=== PATIENT | female | born 1960 | race Caucasian/White ===

== ENCOUNTER → 2017-12-14 14:42 | Outpatient (CLI) | payer OTHER, SELFPAY ==
[2017-12-14 15:50] LABS: Absolute Lymphocyte Count 1.59 X10^3/ul (0.83-4.51); Absolute Neutrophil Count 3.3 X10^3/uL (2.0-7.7); Basophil# 0.01 X10^3/uL; Basophil% 0.2 % (0-1); Eosinophils% 1.8 % (0-5); Hematocrit 42.2 % (37-47); Hemoglobin 13.1 g/dl (12.0-15.0); Lymphocyte # 1.59 X10^3/ul (4.0); Lymphocyte % 28.6 % (19-41); Mean Corpuscular Hgb 30.6 pg (27.0-32.0); Mean Corpuscular Volume 98.6 fL (81-99); Mean Platelet Vol. 10.7 fl (6.2-12.0); Monocyte# 0.53 X10^3/uL; Monocyte% 9.5 % (0-10); Neutrophil # 3.33 X10^3/uL (2.7-7.7); Neutrophil % 59.9 % (47-70); Platelet Count 291 K/mm3 (150-450); RBC Distribution Width CV 13.7 % (11.6-14.6); RBC Distribution Width SD 48.8 fl (35.1-43.9); Red Blood Count 4.28 M/mm3 (4.2-5.4); White Blood Count 5.6 K/mm3 (4.4-11.0)
[2017-12-14 16:03] LABS: POSITIVE COUNT NO; POSITIVE DIFFERENTIAL NO; POSITIVE MORPHOLOGY NO
[2017-12-14 16:15] LABS: Anion Gap 9 (5-15); BUN 18 mg/dL (7-18); Calcium,Total 8.8 mg/dL (8.5-10.1); Chloride 105 mmol/L (98-107); Cholesterol 207 mg/dL (200); Creatinine, Serum 0.78 mg/dL (0.55-1.02); EST Glomerular Filtration Rate 80 mL/min (>60); Est Glom Filt Rate - Afr Amer 97 mL/min (>60); Glucose 86 mg/dL (74-106); High Density Lipoprotein 49 mg/dL; Potassium 4.2 mmol/L (3.5-5.1); Sodium Level 141 mmol/L (136-145); Thyroid Stim Hormone (TSH) 1.87 uIU/mL (0.358-3.74); Triglycerides 121 mg/dL; Very Low Density Lipoprotein 24 mg/dL (5-40)
== END ==
PROVIDERS: Family Provider Internal Medicine; PCP Internal Medicine; Visit Provider Family Medicine
DX: Z00.00 Encounter for general adult medical examination without abnormal findings (principal)
CPT/HCPCS: 36415; 80048; 80061; 84443; 85025

== ENCOUNTER → 2019-05-14 | Outpatient (CLI) | payer OTHER, SELFPAY ==
[2019-05-14 13:18] LABS: Anion Gap 5 (5-15); BUN 14 mg/dL (7-18); BUN/Creat Ratio 18.3 RATIO (10-20); Calcium,Total 9.2 mg/dL (8.5-10.1); Chloride 107 mmol/L (98-107); Cholesterol 224 mg/dL (200); Creatinine, Serum 0.76 mg/dL (0.55-1.02); EST Glomerular Filtration Rate 82 mL/min (>60); Est Glom Filt Rate - Afr Amer 99 mL/min (>60); Glucose 99 mg/dL (74-106); High Density Lipoprotein 50 mg/dL; Potassium 4.5 mmol/L (3.5-5.1); Sodium Level 139 mmol/L (136-145); Triglycerides 90 mg/dL; Very Low Density Lipoprotein 18 mg/dL (5-40)
== END | disposition home or self-care (01) ==
LOC: MFPLAB 10:12
PROVIDERS: Family Provider Family Medicine; PCP Family Medicine; Referring Provider Family Medicine; Visit Provider Family Medicine
DX: Z00.00 Encounter for general adult medical examination without abnormal findings (principal); E66.01 Morbid (severe) obesity due to excess calories
CPT/HCPCS: 36415; 80048; 80061; 84443

== ENCOUNTER → 2019-05-23 | Outpatient (CLI) | payer OTHER, SELFPAY ==
[2019-05-30 12:38] LABS: HPV Reflexed? NOT INDICATED
== END | disposition home or self-care (01) ==
LOC: LABSPEC 13:00
PROVIDERS: Family Provider Family Medicine; PCP Family Medicine; Referring Provider Family Medicine; Visit Provider Family Medicine
DX: Z01.419 Encounter for gynecological examination (general) (routine) without abnormal findings (principal)
CPT/HCPCS: 87491; 87591; 88175; G0145

== ENCOUNTER → 2020-06-10 | Outpatient (CLI) | payer MEDICAID, SELFPAY ==
--- NOTE | 2020-06-10 10:45 | BI_ITS ---
MAMMOGRAPHY - BILATERAL SCREENING REASON FOR EXAM: Female, 60 years old. Routine annual screening examination. PERTINENT HISTORY: Non-contributory. TECHNIQUE: Digital bilateral breast mesha (3D mammographic acquisition) in the CC and MLO projections. 2-D mediolateral oblique (MLO) and craniocaudad (CC) views of both breasts were obtained. CAD: Full Field Digital Mammography with Computer Added Detection was performed. COMPARISON: Comparison is made with prior examination dated 03/30/2011. FINDINGS: Breast Composition: The breasts are heterogeneously dense, which may obscure small masses. There are no dominant masses or suspicious calcifications. Stable benign-appearing bilateral axillary lymph nodes. No other significant abnormalities are identified. There has been no significant change since the prior study. BI/SCREEN MAMM (CAD) W/MESHA BILAT IMPRESSION: Stable bilateral screening mammogram. Yearly follow-up mammogram recommended. (A) ASSESSMENT CATEGORY: BIRADS Category 2: Benign. A letter regarding these results will be sent to the patient by the facility within 30 days. Approximately 10% of breast cancers are not detected by mammography. A normal mammogram should not delay biopsy of a clinically suspicious abnormality. [id number] Electronically Signed: Flaquito Meneses, at 9:31 EDT , Service support ,
== END | disposition home or self-care (01) ==
LOC: OPBI 10:39
PROVIDERS: PCP Nurse Practitioner Family; Referring Provider Nurse Practitioner Family; Visit Provider Nurse Practitioner Family
DX: Z12.31 Encounter for screening mammogram for malignant neoplasm of breast (principal)
CPT/HCPCS: 77063; 77067

== ENCOUNTER → 2021-03-14 07:45 | Outpatient (CLI) | payer OTHER, SELFPAY ==
[2020-12-30 14:11] VITALS: BMI 39.4
--- NOTE | 2021-03-14 07:46 | VDLE_ITS ---
Reason For Study: pain RIGHT LEFT CFV is compressible, spontaneous, phasic, CFV is compressible, spontaneous, phasic, competent and demonstrates normal competent, and demonstrates normal augmentation. augmentation. FV is compressible, spontaneous, phasic, FV is compressible, spontaneous, phasic, competent and demonstrates normal competent and demonstrates normal augmentation. augmentation. POP V is compressible, spontaneous, phasic, POP V is compressible, spontaneous, phasic, competent and demonstrates normal competent and demonstrates normal augmentation. augmentation. T/P Trunk is compressible. T/P Trunk is compressible. PTV is compressible. PTV is compressible. RT PerV is compressible. LT PerV is compressible. GSV S/P EVLA (unknown date). GSV S/P EVLA (unknown date). Procedure This is a venous duplex using B-mode, color flow and spectral Doppler. Exam performed in department. The study was technically difficult. Due to body habitus. A preliminary report was called and/or faxed to Dr. Hoskins @ 8:30 am. VL/Venous Duplex US - Robbie Extrem Interpretation Summary Bilateral no DVT. Bilateral previous successful ablation. Ordering Physician: Eugene Hoskins Referring Physician: Melinda [facility] Performed By: Glenda Chiu, RDCS, RVT
== END ==
PROVIDERS: Referring Provider Surgery Vascular Surgery; Visit Provider Surgery Vascular Surgery
DX: M79.606 Pain in leg, unspecified (principal); M79.89 Other specified soft tissue disorders
CPT/HCPCS: 93970

== ENCOUNTER 2022-11-01 11:17 | Emergency (ER) | payer OTHER, SELFPAY ==
[2022-11-01 11:18] VITALS: BP 149/74; PULSE 88; RESP 18; TEMP 36.1; O2SAT 100; BMI 39.8
--- NOTE | 2022-11-01 12:07 | RAD_ITS ---
STUDY: X-RAY - LEFT KNEE REASON FOR EXAM: Female, 62 years old. Knee pain following a fall. TECHNIQUE: 4 view(s) of the knee. COMPARISON: None. FINDINGS: Normal visualized distal femur. Normal visualized proximal tibia and fibula. Normal proximal tibiofibular articulation. There is severe degenerative arthrosis of the medial femorotibial compartment with severe joint space narrowing. Normal lateral femorotibial compartment. There is severe degenerative arthrosis of the patellofemoral articulation. The soft tissue structures are unremarkable. RAD/Knee 4 or More Views IMPRESSION: Degenerative arthrosis. Electronically Signed: Flaquito Meneses MD at 12:43 EST ,
--- NOTE | 2022-11-01 12:08 | ED.VIS.LOWEX ---
HPI History of Present Illness Chief Complaint: Lower Extremity Injury Informant: patient Narrative Narrative: Presents with a fall on ice yesterday evening. No head injuries. Injury left knee and left ankle. Known meniscus injury to left knee followed by Dr. Pabon. Gets knee injections. No surgical plans at this time. Tylenol taken yesterday. No history of gastric ulcers or kidney injury. No paresthesias. No history of fractures. PFSH PFSH Medical History Primary osteoarthritis of right knee Home Medications cholecalciferol (vitamin D3) 10 mcg (400 unit) capsule 10 mcg PO DAILY 11/25/21 [History Last Taken Unknown] multivitamin 1 tab PO DAILY 11/25/21 [History Last Taken Unknown] turmeric 400 mg capsule mg PO 11/25/21 [History Last Taken Unknown] Allergy/AdvReac Type Severity Reaction Status Date / Time No Known Allergies Allergy Verified 11/01/22 11:19 Family History Father Heart disease Mother Arthritis, rheumatoid Surgical History H/O arthroscopic knee surgery Social History Smoking Status: Never smoker alcohol intake: current alcohol intake frequency: holidays/special occasions only ROS ROS ED Constitutional Constitutional ED: Denies chills, fever(s) or sweats Eyes Eyes: Denies change in vision ENT ENT ED: Denies dysphagia or sore throat Cardiovascular Cardiovascular: Denies chest pain, leg edema, palpitations or racing heartbeat Respiratory/Chest Respiratory/Chest: Denies cough, dyspnea or dyspnea on exertion Gastrointestinal Gastrointestinal: Denies abdominal pain, diarrhea, nausea or vomiting Genitourinary Genitourinary ED: Denies dysuria, hematuria or urinary frequency Musculoskeletal Musculoskeletal: Reports extremity pain; Denies back pain or neck pain Integumentary Denies rash or wounds Neurologic Neurologic: Denies headache(s), paresthesias or weakness EXAM Physical Exam Const Vital Signs: 11/01/22 11:18 11/01/22 13:34 Temperature 96.9 F L Temperature Source Temporal Pulse Rate 88 74 Respiratory Rate 18 Blood Pressure 149/74 H 115/42 L Blood Pressure Mean 99 Pulse Ox 100 99 Oxygen Delivery Method Room Air Positive well nourished and well developed General Appearance ED: well developed and NAD HEENT Reports moist mucous membranes normocephalic and atraumatic Eyes PERRL, EOMs intact bilaterally and conjunctivae normal General Eye ED: Yes normal appearance of both eyes Neck no lymphadenopathy and supple General: Negative for tenderness Chest Wall Chest: Negative for tenderness Resp normal respiratory effort and normal air movement Effort and Inspection: symmetric chest movement; Negative for respiratory distress Cardio regular rate, regular rhythm and no murmurs Peripheral Pulses: pulses 2+ throughout GI normal to inspection, nondistended, normoactive bowel sounds and non-tender Palpation: Negative for guarding or rebound tenderness present Back/Spine no CVA tenderness and no thoracic nor lumbar tenderness Extremity Extremity Narrative: Left lower extremity: Negative logroll. Knee extensor mechanism intact. No deformity. No proximal head tenderness. Negative varus and valgus. Pain with Nicole's. No medial malleoli or tenderness x-rays lateral malleolus swelling with very minimal tenderness. No midfoot or proximal fifth base tenderness. Skin intact. Neuro vas intact. General Extremety ED: Negative for edema or tenderness General Extremity: Negative for edema Neuro oriented x3 and no sensory deficits noted Sensorium / Orientation: awake and alert Skin no rashes or lesions noted and no wounds MDM MDM MDM Narrative Medical decision making narrative: Patient mechanical fall left knee and ankle injury. 4 view left knee and 3 view left ankle reviewed by myself and read by radiology notes arthrosis of the left knee and lateral soft tissue swelling the ankle. There is no fracture or dislocation. She is treated with ibuprofen. She did not want any additional prescriptions. Aircast to the left ankle she has a four-point walking cane. She will follow-up with Dr. Pabon. All questions were answered. Radiography Diagnostic Testing: Clinical Impression(s) from Imaging Studies Knee X-Ray 11/01/22 12:07 IMPRESSION: Degenerative arthrosis. Electronically Signed: Flaquito Meneses MD at 12:43 EST , Ankle X-Ray 11/01/22 12:24 IMPRESSION: Lateral soft tissue swelling. Electronically Signed: Flaquito Meneses MD at 12:42 EST , Discharge Plan Triage Chief Complaint: Lower Extremity Injury ED Provider: Felipe Sin Dx/Rx/DC Orders Clinical Impression: Left ankle sprain, Left knee sprain Instructions: ED Knee Sprain, ED Ankle Sprain (Adult) Prescriptions: No Action cholecalciferol (vitamin D3) 10 mcg (400 unit) capsule 10 mcg PO DAILY turmeric 400 mg capsule PO multivitamin Tablet 1 tab PO DAILY [facility]errals: Hemant Pabon DO [Med Staff - Active Staff] - 1 Week if not improving [facility],Melinda Gonzáles [Primary Care Provider] - Activity Restrictions/Additional Instructions: Left knee x-ray arthritic changes. Left ankle with no fractures. Disposition Disposition: Home, Self Care Discharge Date/Time: 11/01/22 13:40
--- NOTE | 2022-11-01 12:24 | RAD_ITS ---
STUDY: X-RAY - LEFT ANKLE REASON FOR EXAM: Female, 62 years old. Left ankle pain following a fall. TECHNIQUE: 3 view(s) of the ankle. COMPARISON: None. FINDINGS: Normal visualized distal tibia and fibula. Normal medial and lateral malleoli. Normal tibiotalar articulation and ankle mortise. Calcaneal spurs. The visualized subtalar, talonavicular, calcaneocuboid and tarsal articulations are normal. Lateral soft tissue swelling. RAD/Ankle min 3 Views IMPRESSION: Lateral soft tissue swelling. Electronically Signed: Flaquito Meenses MD at 12:42 EST ,
[2022-11-01] MEDS: Ibuprofen 600 MG Tablet PO (12:35)
[2022-11-01 13:34] VITALS: BP 115/42; PULSE 74; O2SAT 99
--- NOTE | 2022-11-01 13:39 | ED.RN ---
patient requested wheel chair and security to bring van up to the door. [employer] on their way to get the keys and patient taken to door for van. Pt liason is aware of situation.
== END 2022-11-01 13:40 | disposition home or self-care (01) ==
PROVIDERS: Emergency Provider Emergency Medicine; Visit Provider Emergency Medicine
DX: S93.402A Sprain of unspecified ligament of left ankle, initial encounter (principal); M17.12 Unilateral primary osteoarthritis, left knee; S83.92XA Sprain of unspecified site of left knee, initial encounter; W00.0XXA Fall on same level due to ice and snow, initial encounter
CPT/HCPCS: 73564; 73610; 99283

== ENCOUNTER → 2022-11-08 | Outpatient (CLI) | payer OTHER, SELFPAY ==
--- NOTE | 2022-11-08 09:45 | BI_ITS ---
MAMMOGRAPHY - BILATERAL SCREENING REASON FOR EXAM: Female, 62 years old. Routine annual screening examination. PERTINENT HISTORY: Non-contributory. TECHNIQUE: Digital bilateral breast mesha (3D mammographic acquisition) in the CC and MLO projections. 2-D mediolateral oblique (MLO) and craniocaudad (CC) views of both breasts were obtained. CAD: Full Field Digital Mammography with Computer Added Detection was performed. COMPARISON: Mammogram from 06/10/2020. FINDINGS: Breast Composition: Portions of the bilateral breasts are heterogeneously dense which may obscure small masses. There are no dominant masses or suspicious calcifications. Stable benign-appearing bilateral axillary lymph nodes. No other significant abnormalities are identified. There has been no significant change since the prior study. BI/SCRN MAMM (CAD)W/MESHA BILAT IMPRESSION: Stable bilateral screening mammogram. Yearly follow-up mammogram recommended. (A) ASSESSMENT CATEGORY: BIRADS Category 2: Benign. A letter regarding these results will be sent to the patient by the facility within 30 days. Approximately 10% of breast cancers are not detected by mammography. A normal mammogram should not delay biopsy of a clinically suspicious abnormality. Electronically Signed: Rodger Knowles, at 8:56 EST ,
--- NOTE | 2022-11-08 09:52 | BD_ITS ---
STUDY: DUAL ENERGY X-RAY ABSORPTIOMETRY / DXA REASON FOR EXAM: Female, 62 years old. [id number] TECHNIQUE: Bone Mineral Density (BMD) measurements of lumbar spine and bilateral hips were obtained. COMPARISON: None. FINDINGS: Lumbar Spine (L1-L4): g/cm2 (1.346) / T-score (2.7) / Z-score (4.5) Findings are suggestive of normal bone density with a low fracture risk. Left Femur Total: g/cm2 (1.103) / T-score (1.3) / Z-score (2.5) Left Femoral Neck: g/cm2 (0.858) / T-score (0.1) / Z-score (1.6) Right Femur Total: g/cm2 (1.134) / T-score (1.6) / Z-score (2.8) Right Femoral Neck: g/cm2 (0.939) / T-score (0.8) / Z-score (2.3) BD/Dexa Bone Density Study IMPRESSION: The patient is considered normal as outlined below according to World Adan Organization (WHO) criteria with a low fracture risk. Reference Information: The T-score is the number of standard deviations above or below the standard which is normal for young adults at their peak bone mineral density. The World Health Organization (WHO) interprets the T-scores as follows: Above -1 Normal bone density Between -1 and -2.5 Osteopenia Equal to / or below -2.5 Osteoporosis As a practical clinical guideline, osteopenia may be graded as follows: Mild -1 through -1.5 Moderate -1.6 through -2.0 Severe -2.1 through -2.4 The Z-score is the number of standard deviations above or below age-matched controls. A Z-score of less than -1.5 would be considered abnormal. References: 1. NIH Osteoporosis and Related Bone Diseases www osteo.org 2. International Society for Clinical Densitometry www iscd.org 3. National Osteoporosis Foundation www nof.org Electronically Signed: Flaquito Meneses MD at 12:16 EST ,
== END | disposition home or self-care (01) ==
LOC: OPBD 09:43
PROVIDERS: Visit Provider Nurse Practitioner Women's Health
DX: Z12.31 Encounter for screening mammogram for malignant neoplasm of breast (principal); Z78.0 Asymptomatic menopausal state
CPT/HCPCS: 77063; 77067; 77080

== ENCOUNTER → 2023-07-05 | Outpatient (CLI) | payer MEDICARE, SELFPAY ==
[2023-07-05 10:25] LABS: Absolute Lymphocyte Count 1.81 X10^3/uL (0.83-4.51); Absolute Neutrophil Count 3.2 X10^3/uL (2.0-7.7); Basophil# 0.02 X10^3/uL; Basophil% 0.3 % (0-1); Eosinophil# 0.19 X10^3/uL; Eosinophils% 3.3 % (0-5); Hematocrit 43.6 % (37-47); Hemoglobin 13.7 g/dL (12.0-15.0); Lymphocyte # 1.81 X10^3/ul (0.83-4.51); Lymphocyte % 31.4 % (19-41); Mean Corp Hgb Conc 31.4 g/dL (32-36); Mean Corpuscular Hgb 30.8 pg (27.0-32.0); Mean Platelet Vol. 10.9 fl (6.2-12.0); Monocyte% 8.7 % (0-10); NRBC Flagged by Analyzer 0 % (0-5); Neutrophil # 3.24 X10^3/uL (2.7-7.7); Neutrophil % 56.1 % (47-70); Platelet Count 309 K/mm3 (150-450); RBC Distribution Width CV 13.9 % (11.6-14.6); Red Blood Count 4.45 M/mm3 (4.2-5.4); White Blood Count 5.8 K/mm3 (4.4-11.0)
[2023-07-05 11:03] LABS: AST(SGOT) 22 U/L (15-37); Alanine Aminotransfer ALT/SGPT 37 U/L (13-56); Albumin, Serum 3.4 g/dL (3.2-5.0); Alkaline Phosphatase 82 U/L (45-117); Anion Gap 5 (5-15); BUN 15 mg/dL (7-18); BUN/Creat Ratio 18.8 RATIO (10-20); Calcium,Total 8.8 mg/dL (8.5-10.1); Chloride 109 mmol/L (98-107); Cholesterol 218 mg/dL (200); EST Glomerular Filtration Rate 76 mL/min (>60); Est Glom Filt Rate - Afr Amer 93 mL/min (>60); Globulin 3.5 g/dL (2.2-4.2); Glucose 111 mg/dL (74-106); High Density Lipoprotein 49 mg/dL; Potassium 4.1 mmol/L (3.5-5.1); Protein, Total 6.9 g/dL (6.4-8.2); Sodium Level 140 mmol/L (136-145); Thyroid Stim Hormone (TSH) 4.14 uIU/mL (0.358-3.74); Triglycerides 147 mg/dL; Very Low Density Lipoprotein 29 mg/dL (5-40)
[2023-07-06 14:18] LABS: Hemoglobin A1c 5.3 % (3.8-5.6)
== END | disposition home or self-care (01) ==
LOC: MFPLAB 08:33
PROVIDERS: PCP Family Medicine; Visit Provider Family Medicine
DX: R73.09 Other abnormal glucose (principal); E66.01 Morbid (severe) obesity due to excess calories; Z13.1 Encounter for screening for diabetes mellitus
CPT/HCPCS: 36415; 80053; 80061; 83036; 84443; 85025

== ENCOUNTER 2024-03-14 08:01 | Outpatient (RCR) | payer MEDICARE, SELFPAY ==
[2024-03-14 08:32] VITALS: BP 166/79; PULSE 67; RESP 18; TEMP 35.7
--- NOTE | 2024-03-14 12:41 | HP.PCM_ITS ---
History of Present Illness Date of Service: 03/14/24 Chief Complaint: wound of right thumb History of Wound: Sydnie is a pleasant 63 yo woman that presents to the wound healing center today for evaluation and treatment of a nonhealing lesion of her right thumb. She reports that it has been present for over a year. She was seen at [facility] and the lesion was lanced and thick clear viscous fluid was expressed. The lesion returned with time and has become more swollen. She saw PCP 2 weeks ago and he treated it with cryotherapy. He referred her to the wound center due to lack of healing after cryotherapy. She states that it is sometimes painful when she puts pressure on it. She has not been using any dressings to the area. She denies fever, chills, erythema, or drainage. She has not had any similar lesions anywhere else. She is otherwise healthy and has no medical problems and takes no medications. [facility] Medical History Primary osteoarthritis of right knee Home Medications multivitamin 1 tab PO DAILY 11/25/21 [History Last Taken Unknown] miscellaneous medical supply 1 ea miscellaneous .1.0 year #1 ea 11/17/22 [Rx Last Taken Unknown] Allergy/AdvReac Type Severity Reaction Status Date / Time No Known Allergies Allergy Verified 03/10/24 13:07 Family History Father Heart disease Mother Arthritis, rheumatoid Surgical History H/O arthroscopic knee surgery Social History Smoking Status: Never smoker alcohol intake: current alcohol intake frequency: holidays/special occasions only ROS Constitutional Constitutional: Denies chills, fatigue or fever(s) Eyes Eyes: Denies blurry vision, change in vision or loss of vision ENT HEENT: Denies dysphagia, hearing loss or sore throat Cardiovascular Cardiovascular: Denies chest pain, edema or palpitations Respiratory/Chest Respiratory/Chest: Denies dry cough, dyspnea, dyspnea on exertion, productive cough or wheezing Gastrointestinal Gastrointestinal: Denies diarrhea, nausea or vomiting Genitourinary Genitourinary: Denies dysuria or polyuria Musculoskeletal Musculoskeletal: Denies arthralgias, joint stiffness or muscle weakness Integumentary Integumentary: Reports erythema and wounds Neurologic Neurologic: Denies dizziness, memory loss or weakness Psychiatric Psychiatric: Denies homicidal ideation or suicidal ideation Endocrine Endocrinology: Denies polydipsia, polyphagia or polyuria Hematologic/Lymphatic Hematologic/Lymphatic: Denies easy bleeding or easy bruising Allergic/Immunologic Allergic/Immunologic: Denies throat swelling, tongue swelling or urticaria Vital Signs Vital Signs Vital Signs: 03/14/24 08:32 Temperature 96.2 F L Temperature Source Temporal Pulse Rate 67 Respiratory Rate 18 Blood Pressure 166/79 H Blood Pressure Mean 108 Blood Pressure Source Monitor Blood Pressure Position Semi-Fowlers Blood Pressure Location Left Arm Physical Exam Const alert, oriented x3 and no apparent distress General Appearance: cooperative and comfortable HEENT normocephalic and head/scalp atraumatic Resp normal respiratory effort Effort and Inspection: able to speak in complete sentences Cardio regular rate and regular rhythm Skin Wounds: wounds noted Wound Narrative: as in clinical panel Psych mental status grossly normal, thought process normal, cooperative and affect normal Debridement Note Debridement Note Wound debrided: right distal thumb Laterality: Right Anesthesia Used: 4% Lidocaine Solution Amount of bleeding with debridement: Mild Bleeding Controlled with: Pressure and Compression and gauze Operative Diagnosis: 18 G needle used to puncture Post-Debridement Measurements and Additional Note: Post-Debridement Measurements/Treatment WC - Nurse 1 - General Ulcer Assessment Start: 03/14/24 08:32 Freq: Status: Active Protocol: [email or web address] Activity Type Activity Date Activity User E-sign Co-sign Detail Recorded Client Recorded Date Recorded By Document 03/14/24 08:32 [id number] 03/14/24 08:34 RB 03/14/24 08:32 - Today's Visit Information Type of service Initial Visit Arrival Mode Ambulatory Transfer Assistance None Patient Identification Verified (Name & No ) Vital Signs Temperature (97.8 F-99.1 F) 96.2 F L Temperature Source Temporal Pulse Rate (60-100) 67 Pulse Location Monitor Respiratory Rate (12-18) 18 Respiratory rate source Observation Blood Pressure (90/60-120/80) 166/79 H Blood Pressure Mean 108 Source Monitor Position Semi-Fowlers Blood Pressure Location Left Arm Pain Scale: 0-10 Numeric Is Patient Pain Free? Yes WC - Nurse 1 - General Ulcer Measurement Start: 03/14/24 08:32 Freq: Status: Active Protocol: Activity Type Activity Date Activity User E-sign Co-sign Detail Recorded Client Recorded Date Recorded By Document 03/14/24 08:32 RB [id number] 03/14/24 08:34 RB 03/14/24 08:32 Wound Center Nurse 1 1. R THUMB -Combined with other wound No -Current Size (cm) - Length 0.1 -Current Size (cm) - Width 0.1 -Current Size (cm) - Depth 0.1 -Total Square Cm 0.01 -Photo Taken Yes -Tunneling No -Undermining/Tunneling No -Circular Undermining No -Exudate Amt None Present -Wound Margin Distinct, Outline Attached -Granulation Amt Large (67-100%) -Granulation Quality [place] -Slough/Fibrin No -Structure Exposed N/A -Texture (Goldie-wound Skin Appearance) Assessed -Moisture (Goldie-wound Skin Appearance) Assessed -Color (Goldie-wound Skin Appearance) Assessed -Temperature (Goldie-wound Skin No Abnormality Appearance) (Pt Warm) -Tenderness on Palpation (Goldie-wound No Skin Appearance) -Ulcer Cleansing Wound Cleanser -Foul Odor after Cleansing No -Anesthetic Used 4% Lidocaine Solution WC - Nurse 2 - General Ulcer CM Notes Start: 03/14/24 08:32 Freq: Status: Active Protocol: Activity Type Activity Date Activity User E-sign Co-sign Detail Recorded Client Recorded Date Recorded By Document 03/14/24 08:33 GM Desktop 03/14/24 08:54 GM 03/14/24 08:33 Pain Scale: 0-10 Numeric Is Patient Pain Free? Yes Assessment/Plan Assessment/Plan (1) Osteoarthritis of knees, bilateral: CODE(S): M17.0 - Bilateral primary osteoarthritis of knee QUALIFIERS: Osteoarthritis type: primary Qualified Code(s): M17.0 - Bilateral primary osteoarthritis of knee (2) Obesity: CODE(S): E66.9 - Obesity, unspecified QUALIFIERS: Obesity type: unspecified obesity type Obesity classification: adult class 2 (BMI 35 - 39.9) Serious obesity comorbidity presence: without serious comorbidity Body mass index: unspecified BMI Qualified Code(s): E66.9 - Obesity, unspecified (3) Ganglion cyst of flexor tendon sheath of finger of right hand: CODE(S): M67.441 - Ganglion, right hand PLAN: Plan Incision and drainage performed today in clinic using 18 G needle. Small amount of viscous clear drainage expressed consistent with ganglion cyst or synovial cyst. Pressure and bandage applied. Patient tolerated procedure well. At home wound-care instructions: Keep area clean and dry for the next few days. If returns could consider orthopedic referral for possible surgical excision of cyst. Diet: Patient encouraged to increase protein intake while taking caution to avoid high carbohydrate and/or sugar intake. Labs/cultures/imaging: Follow-up: Will discharge from treatment today. Return sooner or report to the emergency room should symptoms worsen, or new symptoms arise. Note: [employer] speech recognition construction assistant software was used to create portions of this document. Sound-alike and misspelled words, as well as other construction assistant errors may be contained in the documentation.
== END 2024-04-11 23:59 | disposition home or self-care (01) ==
LOC: WC 08:01
PROVIDERS: PCP Family Medicine; Referring Provider Family Medicine; Visit Provider Family Medicine
DX: M17.0 Bilateral primary osteoarthritis of knee (principal); E66.9 Obesity, unspecified; M67.441 Ganglion, right hand; Z68.35 Body mass index [BMI] 35.0-35.9, adult
CPT/HCPCS: 99213; G0463

== ENCOUNTER → 2024-05-09 | Outpatient (CLI) | payer MEDICARE, SELFPAY ==
[2024-05-09 17:35] LABS: Absolute Lymphocyte Count 1.88 X10^3/uL (0.83-4.51); Absolute Neutrophil Count 3.9 X10^3/uL (2.0-7.7); Basophil# 0.03 X10^3/uL; Basophil% 0.4 % (0-1); Eosinophil# 0.24 X10^3/uL; Eosinophils% 3.6 % (0-5); Hematocrit 41.7 % (37-47); Hemoglobin 13.2 g/dL (12.0-15.0); Lymphocyte # 1.88 X10^3/ul (0.83-4.51); Lymphocyte % 27.9 % (19-41); Mean Corp Hgb Conc 31.7 g/dL (32-36); Mean Corpuscular Hgb 30.2 pg (27.0-32.0); Mean Corpuscular Volume 95.4 fL (81-99); Mean Platelet Vol. 10.5 fl (6.2-12.0); Monocyte# 0.65 X10^3/uL; Monocyte% 9.6 % (0-10); NRBC Flagged by Analyzer 0 % (0-5); Neutrophil # 3.93 X10^3/uL (2.7-7.7); Neutrophil % 58.4 % (47-70); Platelet Count 334 K/mm3 (150-450); RBC Distribution Width CV 14.5 % (11.6-14.6); RBC Distribution Width SD 51.5 fl (35.1-43.9); Red Blood Count 4.37 M/mm3 (4.2-5.4); White Blood Count 6.7 K/mm3 (4.4-11.0)
[2024-05-09 18:20] LABS: ALB/GLOB Ratio 1.2 RATIO (0.9-2.4); AST(SGOT) 28 U/L (15-37); Alanine Aminotransfer ALT/SGPT 43 U/L (13-56); Albumin, Serum 3.8 g/dL (3.2-5.0); Alkaline Phosphatase 89 U/L (45-117); Anion Gap 7 (5-15); BUN 16 mg/dL (7-18); BUN/Creat Ratio 20.9 RATIO (10-20); Calcium,Total 9.4 mg/dL (8.5-10.1); Chloride 108 mmol/L (98-107); Creatinine, Serum 0.76 mg/dL (0.55-1.02); EST Glomerular Filtration Rate 80 mL/min (>60); Est Glom Filt Rate - Afr Amer 97 mL/min (>60); Globulin 3.2 g/dL (2.2-4.2); Glucose 97 mg/dL (74-106); Potassium 4.3 mmol/L (3.5-5.1); Sodium Level 141 mmol/L (136-145); T4 Free Direct 1.04 ng/dL (0.76-1.46); Thyroid Stim Hormone (TSH) 3.72 uIU/mL (0.358-3.74)
[2024-05-09 18:31] LABS: Microalbumin,Random Urine 5.6 mg/L (NO RANGE EST.); Microalbumin:Creatinine Ratio 6.1 mg/g CRE (<30 mg/g CRE)
== END | disposition home or self-care (01) ==
LOC: MTLAB 16:15
PROVIDERS: PCP Family Medicine; Visit Provider Family Medicine
DX: I73.9 Peripheral vascular disease, unspecified (principal); R60.0 Localized edema; R79.89 Other specified abnormal findings of blood chemistry
CPT/HCPCS: 36415; 80053; 82043; 82570; 84439; 84443; 85025

== ENCOUNTER → 2024-12-25 | Outpatient (CLI) | payer MEDICARE, SELFPAY ==
[2024-12-25 16:04] LABS: Vitamin D,25 Hydroxy 29.2 ng/mL
== END | disposition home or self-care (01) ==
LOC: MFPLAB 11:37
PROVIDERS: PCP Family Medicine; Referring Provider Family Medicine; Visit Provider Family Medicine
DX: R79.89 Other specified abnormal findings of blood chemistry (principal); Z92.89 Personal history of other medical treatment
CPT/HCPCS: 36415; 82306; 84443

== ENCOUNTER → 2025-01-02 | Outpatient (CLI) | payer MEDICARE, SELFPAY ==
--- NOTE | 2025-01-02 11:02 | BI_ITS ---
PROCEDURE: SCRN MAMM (CAD)W/MESHA BILAT REASON FOR EXAM: F, Age 64 y/o, presents for annual screening mammogram. No family history of breast cancer. TECHNIQUE: Bilateral screening digital breast tomosynthesis with 2D and 3D images. Computer aided detection. COMPARISON: 10/31/2022 FINDINGS: There are scattered areas of fibroglandular density. No suspicious masses, areas of developing architectural distortion, or suspicious calcifications. BI/SCRN MAMM (CAD)W/MESHA BILAT IMPRESSION: There is no mammographic evidence of malignancy in either breast.. BI-RADS 1: NEGATIVE. RECOMMEND ANNUAL MAMMOGRAPHIC SCREENING. Follow-up code: Routine Follow-up The patient will be notified of the results by letter. Reading Location: [id number]
== END | disposition home or self-care (01) ==
LOC: OPBI 11:01
PROVIDERS: PCP Family Medicine; Referring Provider Family Medicine; Visit Provider Family Medicine
DX: Z12.31 Encounter for screening mammogram for malignant neoplasm of breast (principal)
CPT/HCPCS: 77063; 77067

== ENCOUNTER 2025-01-19 09:42 | Day surgery (SDC) | payer MEDICARE, SELFPAY ==
[2025-01-19] VITALS (8 sets, daily range): BP systolic 114–146; BP diastolic 66–82; PULSE 14–83; RESP 16–69; TEMP 36.3–36.9; O2SAT 97–100; BMI 42.4
--- NOTE | 2025-01-19 10:05 | PCM.PRE.AN2 ---
ASA Classification* ASA Classification ASA Classification: 3 Assessment & Plan Anesthesia* Anesthesia Assessment Anesthesia Assessment: Discussed sedation and/or anesthesia options, risks, benefits, and alternatives with patient/parents/legal guardian/POA. Questions invited. The patient/parents/legal guardian/POA seems to understand and agrees to proceed with anesthesia plan. Reviewed the physical assessment, medical history, allergy history and patient home medications list prior to surgery/procedure/anesthetic and documented any changes. Performed airway and anesthesia risk assessments. Anesthesia Type Anesthesia Type: MAC Anesthesia Focused Assessment* Temperature: 98.5 F Pulse Rate: 83 Blood Pressure: 146/82 Respiratory Rate: 16 Pulse Ox: 97 Airway Assessment Mouth opens: >3 cm Mallampati Score: II Focused Labs Anesthesia Preop lab: CBC WBC 6.7 K/mm3 (4.4-11.0) 05/09/24 16:19 05/09/24 RBC 4.37 M/mm3 (4.2-5.4) 05/09/24 16:19 05/09/24 Hgb 13.2 g/dL (12.0-15.0) 05/09/24 16:19 05/09/24 Hct 41.7 % (37-47) 05/09/24 16:19 05/09/24 Plt Count 334 K/mm3 (150-450) 05/09/24 16:19 05/09/24 CHEMISTRY Potassium 4.3 mmol/L (3.5-5.1) 05/09/24 16:19 05/09/24 Sodium 141 mmol/L (136-145) 05/09/24 16:19 05/09/24 BUN 16 mg/dL (7-18) 05/09/24 16:19 05/09/24 Creatinine 0.76 mg/dL (0.55-1.02) 05/09/24 16:19 05/09/24 Glucose 97 mg/dL (74-106) 05/09/24 16:19 05/09/24 TSH 2.530 uIU/mL (0.358-3.740) 12/25/24 11:37 12/25/24 COAG Pre-Assessment Diagnosis/Proposed Procedure Planned Operative Procedure(s): cscope Anesthesia History 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 When Was Last Pacemaker Check QUESTION #4 FULL TEXT: You/Your Family Experience fever (hyperthermia) with Anesthesia Last Oral Intake Last Oral intake: Last Oral Intake NPO since 06:30 01/19/25 09:56 Meds taken in AM with sips of water? 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 Female Yes 01/15/25 14:24 HX of Motion Sickness No 01/15/25 14:24 HX of N/V After Surgery No 01/15/25 14:24 Non-Smoker Yes 01/15/25 14:24 Duration of Surgery greater No 01/15/25 14:24 than 60 minutes Number of Risk Factors 2 01/15/25 14:24 PONV Score Moderate Risk 01/15/25 14:24 Height & Weight Height & Weight: Anesthesia: Height & Weight Height 5 ft 4 in 01/19/25 09:56 Weight: 112.037 kg 01/19/25 09:56 Body Mass Index (BMI) 42.4 01/19/25 09:56 Respiratory Assessment Respiratory Assessment - white sugar pan tank operator: Respiratory Tract Infection Hx - white sugar pan tank operator Hx Respiratory Tract Infection No 01/15/25 14:24 STOP Sleep Apnea STOP Sleep Apnea - white sugar pan tank operator: STOP Sleep Apnea - white sugar pan tank operator Hx Hypertension No 01/15/25 14:24 Hx Sleep Apnea No 01/15/25 14:24 CPAP BIPAP Do you snore loudly (louder No 01/15/25 14:24 than talking or can be heard Do you often feel tired/ No 01/15/25 14:24 fatigued/ sleepy during daytime? Has anyone observed you stop No 01/15/25 14:24 breathing during sleep? STOP Results Negative 01/15/25 14:24 QUESTION #5 FULL TEXT : Do you snore loudly (louder than talking or can be heard through closed doors)? 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 Specify any problems Hx of Preganancy in last 3 N/A 01/15/25 14:24 Months Nurse Filling Out Transfusion NBUCHER 01/15/25 14:24 & Questions: Date: 01/15/25 01/15/25 14:24 Time: 14:24 01/15/25 14:24 Patient unable to answer at this time (ie. 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: /Reproductive Hx- white sugar pan tank operator Hx Now No 01/15/25 14:24 Gestational Age (in weeks): EDC: Hx Hx Para Hx Section SAB No 01/15/25 14:24 PFSH Medical History Wears glasses Arthritis Non-smoker History of edema PVD (peripheral vascular disease) Hx of colonic polyps Primary osteoarthritis of right knee Home Medications ?Medication ?Instructions ?Recorded ?Last Taken ?Type semaglutide (weight loss) 0.25 0.25 mg subcut TU 01/01/25 01/06/25 History mg/0.5 mL subcutaneous pen injector Allergy/AdvReac Type Severity Reaction Status Date / Time No Known Allergies Allergy Verified 01/19/25 09:56 Family History Father Heart disease Mother Arthritis, rheumatoid Surgical History Hx of colonoscopy H/O arthroscopic knee surgery Social History household members: none current occupational status: retired pets and animals: Yes pets and animals: cat(s) Smoking Status: Never smoker alcohol intake: current alcohol intake frequency: holidays/special occasions only substance use type: does not use Review of Systems (Anesthesia) ROS Narrative System reviewed and no additional complaints, except as documented.
--- NOTE | 2025-01-19 11:00 | COLBX_PTH ---
PATIENT: CRISTINO DANG LOC: EN U#:[id number] AGE/SX: 64/F ROOM: RE01/19/[address]: Dr. Bhakti Najera MD : 1960 BED: DIS: 01/19/2025 SPEC #: [id number] RECD: 01/19/25 12:27 STATUS: ALINE REPita #: [id number] MICAH: 01/19/25 11:[address]: Bhakti Najera DEPT: SURGICAL PATHOLOGY RECD BY: Leticia Garcia ENTERED: 01/19/25 12:46 SP TYPE: COLON BX OTHR DR: Parish Campos MD Tissues: A - Ascending colon B - Descending colon C - Sigmoid colon biopsy Procedures: Surgery Specimen Level IV HEADER OPERATION: Colonoscopy with polypectomy PRE-OP DIAGNOSIS: Encounter for screening for malignant neoplasm of colon TISSUE SUBMITTED: A- Ascending colon polyp, B- Descending colon polyp biopsy, C- Sigmoid polyp MICROSCOPIC DIAGNOSIS A: ASCENDING COLON POLYP, BIOPSY: * Tubular adenoma. B: DESCENDING COLON POLYP, BIOPSY: * Polypoid colonic mucosa. * No dysplasia seen (deeper sections examined). C: SIGMOID COLON POLYP, BIOPSY: * Tubular adenoma. MICROSCOPIC DESCRIPTION Slides are reviewed. GROSS DESCRIPTION A. Received in fixative is one container labeled with the patient's name and designated Ascending colon polyp. The specimen consists of multiple irregular fragments of light escobar soft tissue that in aggregate measure 1.4 x 0.4 x 0.2 cm. The specimen is totally submitted in one cassette. B. Received in fixative is one container labeled with the patient's name and designated Descending colon polyp biopsy. The specimen consists of one irregular fragment of light escobar soft tissue that measures 0.5 x 0.4 x 0.1 cm. The specimen is totally submitted in one cassette. C. Received in fixative is one container labeled with the patient's name and designated Sigmoid polyp. The specimen consists of multiple irregular fragments of light escobar soft tissue that in aggregate measure 1.2 x 0.7 x 0.2 cm. The specimen is totally submitted in one cassette. MS/mr 01/19/2025 CPT:40315e2
--- NOTE | 2025-01-19 11:11 | H&P.OPEN ---
[facility] - General General Date of Service: 01/19/25 HPI Narrative CRISTINO DANG, is a 64 F who presents for screening colonoscopy. Patient last colonoscopy was about 15 years ago patient polyps that time told come back in 5 years. Patient denies any family history of colon cancer. Patient denies any chronic abdominal pain/nausea/vomiting/reflux. Patient has bowel movements daily denies any blood. PFSH Medical History Wears glasses Arthritis Non-smoker History of edema PVD (peripheral vascular disease) Hx of colonic polyps Primary osteoarthritis of right knee Home Medications ?Medication ?Instructions ?Recorded ?Last Taken ?Type semaglutide (weight loss) 0.25 0.25 mg subcut TU 01/01/25 01/06/25 History mg/0.5 mL subcutaneous pen injector Allergy/AdvReac Type Severity Reaction Status Date / Time No Known Allergies Allergy Verified 01/19/25 09:56 Family History Father Heart disease Mother Arthritis, rheumatoid Surgical History Hx of colonoscopy H/O arthroscopic knee surgery Social History household members: none current occupational status: retired pets and animals: Yes pets and animals: cat(s) Smoking Status: Never smoker alcohol intake: current alcohol intake frequency: holidays/special occasions only substance use type: does not use Past Medical/Surgical History Planned Operation Planned Operative Procedure(s): cscope Previous Hospitalizations/Surgeries HX Hospitalizations: No Any Problems With Anesthesia: No You/Your Family Experience Fever (Hyperthermia) With Anes: No Cholinesterase deficiency: No Cardiovascular Hx Hypertension: No Respiratory Hx Sleep Apnea: No Hx Respiratory Tract Infection/Cold (presently): No Do You Snore Loudly (louder than talking or can be heard): No Do You Often Feel Tired/ Fatigued/ Sleepy Dring Daytime?: No Has Anyone Observed You Stop Breathing During Sleep?: No Result (for STOP score): Negative Smoking Status: Never smoker Neurological Does patient have nerve stimulator: No Reproduction : No Miscellaneous Recent Exposure to Contagious Disease: No Allergies No Known Allergies Allergy (Verified 01/19/25 09:56) Discharge Is Pt Admitted From a [facility], or a [facility]: No After D/C, Where Do you Plan to Go: Return Home Vital Signs Vital Signs Vital Signs: 01/19/25 09:56 01/19/25 09:56 01/19/25 10:06 Temperature 98.5 F 98.5 F Temperature Source Temporal Pulse Rate 83 83 Respiratory Rate 16 16 Respiratory Pattern Normal Blood Pressure 146/82 H 146/82 H Blood Pressure Mean 103 Blood Pressure Source Monitor Blood Pressure Position Semi-Fowlers Blood Pressure Location Right Arm Pulse Ox 97 97 Oxygen Delivery Method Room Air Weight Weight: 247 lb Body Mass Index (BMI) 42.4 Physical Exam Const alert, oriented x3 and no apparent distress HEENT normocephalic and head/scalp atraumatic Resp normal respiratory effort Cardio regular rate GI soft to palpation and non-tender; Negative for non-distended Palpation: Negative for guarding Extremity no clubbing, cyanosis or edema Skin no rashes or lesions noted Neuro CN's II-XII intact bilaterally Psych mental status grossly normal Assessment & Plan Assessment/Plan (1) Encounter for screening for malignant neoplasm of colon: Surgery Risks - Colonoscopy I discussed with the patient the risks of the procedure: Yes Risks Include but are not Limited To: Risks include but are not limited to: Bleeding, perforation requiring further surgery, inability to complete colonoscopy requiring barium enema.
--- NOTE | 2025-01-19 12:10 | PCM.POST.ANE ---
Anesthesia: Postop Eval I Current Vital Signs Temperature: 97.3 F Pulse Rate: 14 Blood Pressure: 141/79 Respiratory Rate: 69 Pulse Ox: 98 Oxygen Delivery Method: Room Air Assessment Airway patent: Yes Spontaneous unlabored respirations: Yes Mental status: Awake nausea: No Vomiting: No Anesthesia Complication: No Fluid Hydration Crystalloid volume administer (ml): 10 Total IV fluid infused: 10 Progress Note Anesthesia document: Postop Eval 1 completed: Yes
--- NOTE | 2025-01-19 12:17 | OP.COLON_ITS ---
Patient Name: Sydnie Dawkins Procedure Date: 01/19/2025 11:38 AM Date of : 1960 Age: 64 Procedure: Colonoscopy Indications: High risk colon cancer surveillance: Personal history of colonic polyps Providers: Bhakti Najera MD Referring MD: Parish Campos Md Medicines: Monitored Anesthesia Care Patient Profile: This is a 64 year old female. Last Colonoscopy: more than 10 years ago. Complications: No immediate complications. Procedure: Pre-Anesthesia Assessment: - Prior to the procedure, a History and Physical was performed, and patient medications and allergies were reviewed. The patient's tolerance of previous anesthesia was also reviewed. The risks and benefits of the procedure and the sedation options and risks were discussed with the patient. All questions were answered, and informed consent was obtained. Prior Anticoagulants: The patient has taken no anticoagulant or antiplatelet agents. ASA Grade Assessment: Per anesthesia. After reviewing the risks and benefits, the patient was deemed in satisfactory condition to undergo the procedure. After I obtained informed consent, the scope was passed under direct vision. Throughout the procedure, the patient's blood pressure, pulse, and oxygen saturations were monitored continuously. The Colonoscope was introduced through the anus and advanced to the cecum, identified by the appendiceal orifice, ileocecal valve and palpation. The colonoscopy was performed without difficulty. The patient tolerated the procedure well. The quality of the bowel preparation was good. Scope In: 11:46:24 AM Scope Withdrawal Time 0 hours 15 minutes 28 seconds Scope Out: 12:08:11 PM Total Procedure Duration Time 0 hours 21 minutes 47 seconds Findings: The perianal and digital rectal examinations were normal. Two semi-pedunculated polyps were found in the sigmoid colon and ascending colon. The polyps were less than 5 mm in size. These polyps were removed with a hot snare. Resection and retrieval were complete. A less than 5 mm polyp was found in the descending colon. The polyp was sessile. The polyp was removed with a cold biopsy forceps. Resection and retrieval were complete. The entire examined colon appeared normal on direct and retroflexion views. A few small-mouthed diverticula were found in the sigmoid colon. Impression: - Two less than 5 mm polyps in the sigmoid colon and in the ascending colon, removed with a hot snare. Resected and retrieved. - One less than 5 mm polyp in the descending colon, removed with a cold biopsy forceps. Resected and retrieved. - The entire examined colon is normal on direct and retroflexion views. - Diverticulosis in the sigmoid colon. Recommendation: - Discharge patient to home. - Resume previous diet. - Continue present medications. - Await pathology results. - Repeat colonoscopy in 5 years for surveillance based on pathology results. Procedure Code(s): --- Professional --- 79712, PT, Colonoscopy, flexible; with removal of tumor(s), polyp(s), or other lesion(s) by snare technique 94951, 59, Colonoscopy, flexible; with biopsy, single or multiple Diagnosis Code(s): --- Professional --- Z86.010, Personal history of colonic polyps D12.5, Benign neoplasm of sigmoid colon D12.2, Benign neoplasm of ascending colon D12.4, Benign neoplasm of descending colon CPT copyright 2021 [employer]. All rights reserved. The codes documented in this report are preliminary and upon client server developer review may be revised to meet current compliance requirements. MD Bhakti Linares MD 01/19/2025 12:16:33 PM This report has been signed electronically. Number of Addenda: 0 Note Initiated On: 01/19/2025 11:38 AM
--- NOTE | 2025-01-19 12:17 | OP.CCLET_ITS ---
01/19/2025 Parish Campos Md Re : Colonoscopy procedure for Sydnie Dawkins Dear Andres This procedure was performed on Sunday, January 19, 2025. My impressions and recommendations are as follows: Impressions : - Two less than 5 mm polyps in the sigmoid colon and in the ascending colon, removed with a hot snare. Resected and retrieved. - One less than 5 mm polyp in the descending colon, removed with a cold biopsy forceps. Resected and retrieved. - The entire examined colon is normal on direct and retroflexion views. - Diverticulosis in the sigmoid colon. Recommendations : - Discharge patient to home. - Resume previous diet. - Continue present medications. - Await pathology results. - Repeat colonoscopy in 5 years for surveillance based on pathology results. My findings are described in the full procedure note, which is enclosed. If I can be of further assistance, please feel free to contact me at Doctor phone number(s): , Work: . Sincerely, MD Bhakti Linares MD 01/19/2025 12:16:33 PM This report has been signed electronically.
--- NOTE | 2025-01-19 12:27 | POSTOPAN2_ITS ---
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 Spontaneous unlabored Yes 01/19/25 12:15 [email or web address] respirations Mental status Awake 01/19/25 12:15 [email or web address] nausea No 01/19/25 12:15 [email or web address] Vomiting No 01/19/25 12:15 [email or web address] Anesthesia Postop Eval I: Fluid Summary Crystalloid volume administer 10 01/19/25 12:15 [email or web address] (ml) Colloids volume administered ( ml) Blood Product volume administered (ml) Total IV fluid infused 10 01/19/25 12:15 [email or web address] Anesthesia Postop Eval I: Summary Notes Anesthesia Complication No 01/19/25 12:15 [email or web address] Anesthesia Complication Comment: Post-operative progress note Anesthesia: Postop Eval II Evaluation Mental status: Awake Pain Level: 0 nausea: No Vomiting: No
--- NOTE | 2025-01-19 12:27 | PCM.POSTANE2 ---
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 Spontaneous unlabored Yes 01/19/25 12:15 HEALTH AND FITNESS [email or web address] respirations Mental status Awake 01/19/25 12:15 HEALTH AND FITNESS [email or web address] nausea No 01/19/25 12:15 HEALTH AND FITNESS [email or web address] Vomiting No 01/19/25 12:15 HEALTH AND FITNESS [email or web address] Anesthesia Postop Eval I: Fluid Summary Crystalloid volume administer 10 01/19/25 12:15 HEALTH AND FITNESS [email or web address] (ml) Colloids volume administered ( ml) Blood Product volume administered (ml) Total IV fluid infused 10 01/19/25 12:15 HEALTH AND FITNESS [email or web address] Anesthesia Postop Eval I: Summary Notes Anesthesia Complication No 01/19/25 12:15 HEALTH AND FITNESS [email or web address] Anesthesia Complication Comment: Post-operative progress note Anesthesia: Postop Eval II Evaluation Mental status: Awake Pain Level: 0 nausea: No Vomiting: No
== END 2025-01-19 12:47 | disposition home or self-care (01) ==
LOC: EN 09:43 → AC 09:44
PROVIDERS: PCP Family Medicine; Referring Provider Family Medicine; Visit Provider Surgery
PROC: 0DJD8ZZ Inspection of Lower Intestinal Tract, Via Natural or Artificial Opening Endoscopic (ICD-10-PCS; CPT 45378; principal; 2025-01-19 10:55)
DX: Z12.11 Encounter for screening for malignant neoplasm of colon (principal); K57.30 Diverticulosis of large intestine without perforation or abscess without bleeding; D12.5 Benign neoplasm of sigmoid colon; D12.2 Benign neoplasm of ascending colon; Z86.0100 Personal history of colon polyps, unspecified; K63.5 Polyp of colon
CPT/HCPCS: 45385; 45380; 88305; A4216; J2405